=== PATIENT | female | born 1955 | race Caucasian/White ===

== ENCOUNTER → 2017-08-09 | Outpatient (CLI) | payer OTHER | END | disposition home or self-care (01) | LOC: GMAL 10:24 | PROVIDERS: ATTEND Family Medicine | DX: D51.3 Other dietary vitamin B12 deficiency anemia (principal); E03.4 Atrophy of thyroid (acquired); E55.9 Vitamin D deficiency, unspecified ==

== ENCOUNTER → 2018-05-07 | Outpatient (CLI) | payer OTHER ==
--- NOTE | 2018-05-07 15:01 | MRI ---
EXAM DESCRIPTION: Knee,Right: MRI. CLINICAL HISTORY: RT KNEE PAIN COMPARISON: None. TECHNIQUE: Multiplanar, high-field MRI, multiple sequences, without contrast: Right knee. FINDINGS: Intermediate signal and irregularity on the free edge of the posterior horn of the lateral meniscus associated with abnormal signal in the inferior articular surface, and extending into the posterior body. Grade II chondromalacia medial compartment but no subchondral edema. No compartment effusion. Abnormal signal in the inferior articular surface of the body of the medial meniscus. Marrow edema on the anterior and outer aspect of the medial plateau. Grade I to II chondromalacia lateral compartment. Intermediate signal in the posterior root attachment. No subchondral edema in the lateral condyle. Posterior medial soft tissue fluid collection. Minimal fluid signal in the tibial insertion of the ACL. Posterior cruciate ligament is unremarkable. Intercruciate space effusion. Medial collateral ligament and elements of the lateral collateral ligament complex are intact. Degenerative signal in the femoral insertion of the fibular collateral ligament. Normal signal in the iliotibial band. Edema anterior to the patella and patellar tendon. Patellar soft tissue restraints are intact. Minimal suprapatellar effusion. No patellofemoral osteochondral lesions but chondromalacia in the medial and lateral trochlea. IMPRESSION: 1. Small inferior tear in the posterior horn and posterior body of the lateral meniscus. Degenerative signal in the posterior root of the lateral meniscus. Small inferior tear in the posterior horn of the medial meniscus. Moderate chondromalacia but no subchondral edema lateral compartment. 2. Posterior medial Duff cyst. Mild sprain of the tibial insertion of the anterior cruciate ligament. Intercruciate space effusion. Degeneration of the fibular insertion of the fibular collateral ligament. 3. 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 Prepatellar edema. Intimal suprapatellar effusion. Electronically signed by: Preston Oconnor MD 05/07/2018 2:59 PM CDT
== END ==
LOC: MRI 10:00
PROVIDERS: ATTEND Family Medicine
DX: S83.281A Other tear of lateral meniscus, current injury, right knee, initial encounter (principal); S83.241A Other tear of medial meniscus, current injury, right knee, initial encounter; M94.261 Chondromalacia, right knee; M71.21 Synovial cyst of popliteal space [Baker], right knee

== ENCOUNTER → 2019-06-09 | Outpatient (CLI) | payer OTHER | LOC: GMAL 10:31 | PROVIDERS: ATTEND Family Medicine | DX: E03.4 Atrophy of thyroid (acquired) (principal) ==

== ENCOUNTER → 2019-06-12 | Outpatient (CLI) | payer OTHER | LOC: GMAL 10:29 | PROVIDERS: ATTEND Family Medicine | DX: E34.9 Endocrine disorder, unspecified (principal); K21.9 Gastro-esophageal reflux disease without esophagitis ==

== ENCOUNTER → 2020-06-10 | Outpatient (CLI) | payer OTHER | LOC: GMAL 10:14 | PROVIDERS: ATTEND Family Medicine | DX: D51.3 Other dietary vitamin B12 deficiency anemia (principal); E06.3 Autoimmune thyroiditis; E55.9 Vitamin D deficiency, unspecified; I10 Essential (primary) hypertension; Z79.899 Other long term (current) drug therapy ==